=== PATIENT | female | born 1950 | race Caucasian/White ===

== ENCOUNTER 2016-10-26 11:43 | Inpatient (IN) | payer MEDICARE ==
[~2016-10-26] VITALS: Ht 162.6 cm; Wt 106.7 kg
[2016-11-10] MEDS ORDERED: ASPI81TA11 PO (14:29)
[2016-11-10] MEDS ORDERED: TURM1CAP6 PO (14:35)
[2016-11-10] MEDS ORDERED: CINN500C13 PO (14:35)
[2016-11-10] MEDS ORDERED: PANT40TA3 PO (14:35)
[2016-11-10] MEDS ORDERED: BACL10TA PO (14:35)
[2016-11-10] MEDS ORDERED: CURCPOW (14:35)
[2016-11-10] MEDS ORDERED: HYDR25TA5 PO (14:35)
[2016-11-10] MEDS ORDERED: CO Q200C PO (14:35)
[2016-11-10] MEDS ORDERED: GABA800T PO (14:35)
[2016-11-10] MEDS ORDERED: GABA400C5 PO (14:35)
[2016-11-15] MEDS ORDERED: CHLORHEXIDINE GLUCONATE 2 % 1 PACK (2 CLOTHS) TOPICAL PRN (05:30)
[2016-11-15] MEDS ORDERED: METOPROLOL TARTRATE 25 MG TAB PO PRN (05:30)
[2016-11-15] MEDS ORDERED: LACTATED RINGER'S 1000 ML IV PRN (05:30)
[2016-11-15] MEDS ORDERED: SCOPOLAMINE 1.5 MG PATCH T-DERMAL SCH (05:30)
[2016-11-15] MEDS ORDERED: metroNIDAZOLE 500 MG INJ 100 ML IV SCH (05:30)
[2016-11-15] MEDS ORDERED: INSULIN HUMAN REGULAR 1,000 UNITS/10 ML VIAL SQ PRN (05:30)
[2016-11-15] MEDS ORDERED: ACETAMINOPHEN 1000 MG/100 ML VIAL IV SCH (05:30)
[2016-11-15] MEDS ORDERED: APREPITANT 40 MG CAP PO SCH (05:30)
[2016-11-15] MEDS ORDERED: VANCOMYCIN 1,250 MG/NS 250 ML (for 70-84 kg) IV SCH ×2 (05:30)
[2016-11-15] MEDS ORDERED: SODIUM CHLORID 0.9% 500 ML IV PRN (05:30)
[2016-11-15] MEDS ORDERED: ONDANSETRON HCL 4 MG/2 ML VIAL IV PUSH SCH (05:30)
[2016-11-15 05:50] VITALS: BP 133/72; PULSE 73; RESP 16; TEMP 98.1; O2SAT 96
[2016-11-15] MEDS ORDERED: VANCOMYCIN HCL 1000 MG VIAL ONE (06:04)
[2016-11-15] MEDS ORDERED: DICLOFENAC SODIUM 37.5 MG/ML VIAL IV PUSH ONE (06:47)
[2016-11-15] MEDS ORDERED: fentaNYL CITRATE 250 MCG/5 ML AMP ONE (06:47)
[2016-11-15] MEDS ORDERED: DEXAMETHASONE SOD PHOS 4 MG/ML VIAL ONE (06:51)
[2016-11-15] MEDS ORDERED: MIDAZOLAM HCL 2 MG/2 ML VIAL ONE (06:51)
[2016-11-15] MEDS ORDERED: FAMOTIDINE 20 MG/2 ML VIAL ONE (06:51)
[2016-11-15] MEDS ORDERED: BUPIVACAINE/EPINEPHRINE 0.25% 50 ML VIAL INFIL ONE (07:23)
[2016-11-15] MEDS ORDERED: METHYLENE BLUE 100 MG/10 ML VIAL NG ONE (07:43)
[2016-11-15] MEDS ORDERED: ONDANSETRON HCL 4 MG/2 ML VIAL IV PRN (09:00)
[2016-11-15] MEDS ORDERED: NALOXONE HCL 0.4 MG/ML AMP IV PRN (09:00)
[2016-11-15] MEDS ORDERED: MORPHINE SULFATE 30 MG/30 ML PCA IV SCH (09:00)
[2016-11-15] MEDS ORDERED: HYDROmorphone HCL 2 MG TAB PO PRN (09:00)
[2016-11-15] MEDS ORDERED: ENALAPRILAT 1.25 MG/ML VIAL IV PUSH PRN (09:00)
[2016-11-15] MEDS ORDERED: diphenhydrAMINE HCL 50 MG/ML VIAL IV PRN (09:00)
[2016-11-15] MEDS ORDERED: SODIUM CHLORIDE 0.9% FLUSH 10 ML FLUSH IV FLUSH PRN (09:00)
[2016-11-15] MEDS ORDERED: diphenhydrAMINE HCL ELIXIR 12.5 MG/5 ML CUP PO PRN (09:00)
[2016-11-15] MEDS ORDERED: Post-op Orders (for Pharmacy) MISC OTHER ONE (09:03)
--- NOTE | 2016-11-15 09:16 | MP ---
cc: DANIAL GONZLAEZ DATE OF 1950 DATE OF OPERATION 11/15/2016 PREOPERATIVE DIAGNOSES 1. Morbid obesity with BMI of 37, complicated by essential hypertension. 2. Symptomatic cholelithiasis. POSTOPERATIVE DIAGNOSES 1. Morbid obesity with BMI of 37, complicated by essential hypertension. 2. Symptomatic cholelithiasis. PROCEDURE 1. Laparoscopic Hannah-en-Y gastric bypass, 100 cm Hannah limb antegastric, antecolic. 2. Laparoscopic cholecystectomy. SURGEON Danial Gonzalez MD ANESTHESIA sterile technician Dr. Sergio Alvarado ANESTHESIA General endotracheal anesthesia. ESTIMATED BLOOD LOSS Scant. FINDINGS Fatty liver. SPECIMEN Gallbladder. COMPLICATIONS None. OPERATION The patient was brought into the operating room and placed on the operating table in supine position. Bilateral sequential inflation devices were placed on the lower extremities, general anesthesia instituted, Blake catheter placed, antibiotics initiated. The abdomen was prepped and draped sterilely. A point 18 cm distal to the xiphoid in the midline was anesthetized with 0.25% Marcaine with epinephrine. A skin incision was made, a 5-mm Optiview port placed under direct vision and pneumoperitoneum created. Under direct vision, a 5-mm left upper quadrant, a 12-mm left upper quadrant, a 12-mm right upper quadrant and 5-mm right upper quadrant ports were placed. Prior to placement of all ports, the skin and peritoneum were anesthetized with 0.25% Marcaine with epinephrine. The patient patient's omentum was taken off of the abdominal wall using a harmonic. It was split down the middle to create a path for the Hannah limb. The ligament of Treitz was identified, a point 40 cm distal identified, the small bowel divided using an [place] Flex staple with a white load, reinforced with SeamGuard. The distal segment was brought up for a distance of 100 cm, enterotomy created in this region, enterotomy created in the biliopancreatic limb and a [id number] stapled jejunojejunostomy created in the usual manner. The mesenteric defect of the jejunojejunostomy was closed with 2-0 Surgidac suture in a running manner. The patient was placed in reverse Trendelenburg position, left side up. The Cordelia Flex retractor placed and the left lobe of the liver retracted. The angle of His was taken down bluntly, a point 5 cm distal to the GE junction along the lesser curve identified, the lesser sac entered using blunt dissection, the stomach partitioned horizontally using the [place] Flex stapler blue load. Additional firings were taken toward the angle of His to completely divide the stomach. A gastrotomy was created in the kay-stomach, enterotomy in the Hannah limb, a gastrojejunostomy created with a stomal opening of 2 cm. An 18-Beninese OG tube was placed across the anastomosis. The defect was then closed in two layers of running 2-0 Vicryl. Prior to placement of the second layer, methylene blue was instilled through the OG tube. There was no evidence of extravasation. Evicel was then placed over the gastrojejunostomy, jejunojejunostomy and all staple lines, a 10 flat JUANCARLOS placed posterior to the gastrojejunostomy. The operative field was inspected. Hemostasis was present. The patient was then placed right side up in reverse Trendelenburg position. An additional 5-mm port was placed in the epigastrium. The gallbladder was retracted into the upper abdomen, Calot's triangle opened, hepatoduodenal ligament incised. The cystic artery was identified; it was circumferentially dissected. The cystic duct was identified, circumferentially dissected. They were ligated with Hemoclips and divided with the harmonic scalpel. The gallbladder was removed from the liver bed using electrocautery. The liver bed was inspected, hemostasis present. There was no evidence of bile leak or hemorrhage. The [place] Flex retractor was removed. The tubing of the JUANCARLOS was brought out through the 5-mm port site in the right upper quadrant. The pneumoperitoneum was released, all ports removed, all skin incisions closed with 4-0 Monocryl. The abdominal wall was cleaned and a sterile dressing placed. The patient was awakened and taken to recovery room stable. MD DIANNA Zeng/WILSON /9:01 AM /9:10 AM
[2016-11-15] MEDS ORDERED: *morphine SULFATE 8 MG/ML PERIprocedure ONLY ONE ×2 (09:26→09:36)
[2016-11-15] MEDS ORDERED: DO NOT ADM ANY ANTICOAGULANT DRUGS PRN (09:30)
[2016-11-15] MEDS: D5-1/2 NS + KCL 20 MEQ INJ 1,000 ML IV SCH ×3 (09:40→23:29)
[2016-11-15] MEDS: METOCLOPRAMIDE HCL 10 MG/2 ML VIAL IV PUSH SCH ×3 (11:00→23:28)
[2016-11-15] MEDS ORDERED: PROPOFOL 200 MG/20 ML AMP IV ONE (11:16)
[2016-11-15] MEDS ORDERED: ONDANSETRON HCL 4 MG/2 ML VIAL IV PUSH ONE (11:17)
[2016-11-15] MEDS: RESP: ALBUTEROL 2.5 MG/3 ML NEB (SCH) INH ×3 (12:00→23:44)
[2016-11-15] MEDS: ENOXAPARIN SODIUM 40 MG/0.4 ML SYRINGE SQ SCH (13:00)
[2016-11-15] MEDS: metroNIDAZOLE 500 MG INJ 100 ML IV SCH ×2 (13:32→20:07)
[2016-11-15] MEDS: PANTOPRAZOLE SOD 40 MG DELAYED RELEASE TAB PO SCH (14:00)
[2016-11-15 16:00] VITALS: BP 103/54; PULSE 70; RESP 17; TEMP 97.3; O2SAT 97
[2016-11-15 17:06] VITALS: O2SAT 97
[2016-11-15] MEDS: VANCOMYCIN INJ 1,000 MG in SODIUM CHLOR 0.9% 250 ML INJ 250 ML IV SCH (18:00)
[2016-11-15 20:00] VITALS: BP 108/55; PULSE 62; RESP 20; TEMP 98.2; O2SAT 95
[2016-11-15] MEDS: SODIUM CHLORIDE 0.9% FLUSH 10 ML FLUSH IV FLUSH SCH (20:05)
[2016-11-15] MEDS: PCA - TOTAL MG MORPHINE DELIVERED PER SHIFT SCH (20:06)
[2016-11-15 22:25] VITALS: O2SAT 94
[2016-11-16] VITALS (7 sets, daily range): BP systolic 94–125; BP diastolic 53–58; PULSE 55–85; RESP 16–20; TEMP 96.3–97.6; O2SAT 93–100
[2016-11-16] MEDS: D5-1/2 NS + KCL 20 MEQ INJ 1,000 ML IV SCH ×6 (02:00→23:14)
[2016-11-16] MEDS: RESP: ALBUTEROL 2.5 MG/3 ML NEB (SCH) INH ×6 (04:00→23:16)
[2016-11-16] MEDS: METOCLOPRAMIDE HCL 10 MG/2 ML VIAL IV PUSH SCH (04:13)
[2016-11-16] MEDS: VANCOMYCIN INJ 1,000 MG in SODIUM CHLOR 0.9% 250 ML INJ 250 ML IV SCH (04:15)
[2016-11-16] MEDS: metroNIDAZOLE 500 MG INJ 100 ML IV SCH (04:15)
[2016-11-16 05:39] LABS: AUTOMATED NEUTROPHIL # 9.3 TH/MM3 (1.8-7.7); BASOPHIL % 0.2 % (0.0-2.0); HEMO FLAGS DIFF FINAL; LYMPH % 10.9 % (9.0-44.0); LYMPHOCYTE # 1.2 TH/MM3 (1.0-4.8); MEAN CELL VOLUME 90.4 FL (80.0-100.0); MEAN CORPUSCULAR HEMOGLOBIN 29.7 PG (27.0-34.0); MEAN CORPUSCULAR HGB CONC 32.9 % (32.0-36.0); MONO % 6.4 % (0.0-8.0); NEUT % 82.5 % (16.0-70.0); PLATELET COUNT 182 TH/MM3 (150-450); RED CELL DISTRIBUTION WIDTH 13.9 % (11.6-17.2); WHITE BLOOD COUNT 11.3 TH/MM3 (4.0-11.0)
[2016-11-16] MEDS: PCA - TOTAL MG MORPHINE DELIVERED PER SHIFT SCH ×3 (05:40→21:23)
[2016-11-16 06:03] LABS: BICARBONATE 24.3 MEQ/L (21.0-32.0); MAGNESIUM 2.1 MG/DL (1.5-2.5); POTASSIUM 4.5 MEQ/L (3.5-5.1)
[2016-11-16] MEDS: PANTOPRAZOLE SOD 40 MG DELAYED RELEASE TAB PO SCH (08:24)
[2016-11-16] MEDS: SODIUM CHLORIDE 0.9% FLUSH 10 ML FLUSH IV FLUSH SCH ×2 (08:24→21:00)
[2016-11-16] MEDS ORDERED: METOCLOPRAMIDE HCL 10 MG/2 ML VIAL IV PUSH PRN (09:00)
--- NOTE | 2016-11-16 09:10 | HHI.PR ---
Subjective Subjective Notes no acute issues, tolerating liquids, oob, pain controlled Objective Vitals/I&O Vital Signs Date Time Temp Pulse Resp B/P Pulse Ox O2 Delivery O2 Flow Rate FiO2 11/16/16 08:00 96.8 57 16 109/53 98 11/15/16 22:25 21 11/15/16 17:06 Nasal Cannula 2.00 Labs Laboratory Tests Test 11/16/16 03:29 White Blood Count 11.3 Red Blood Count 4.20 Hemoglobin 12.5 Hematocrit 38.0 Mean Corpuscular Volume 90.4 Mean Corpuscular Hemoglobin 29.7 Mean Corpuscular Hemoglobin 32.9 Concent Red Cell Distribution Width 13.9 Platelet Count 182 Mean Platelet Volume 9.2 Neutrophils (%) (Auto) 82.5 Lymphocytes (%) (Auto) 10.9 Monocytes (%) (Auto) 6.4 Eosinophils (%) (Auto) 0.0 Basophils (%) (Auto) 0.2 Neutrophils # (Auto) 9.3 Lymphocytes # (Auto) 1.2 Monocytes # (Auto) 0.7 Eosinophils # (Auto) 0.0 Basophils # (Auto) 0.0 CBC Comment DIFF FINAL Differential Comment Sodium Level 138 Potassium Level 4.5 Chloride Level 108 Carbon Dioxide Level 24.3 Anion Gap 6 Blood Urea Nitrogen 11 Creatinine 0.73 Estimat Glomerular Filtration 80 Rate Random Glucose 118 Calcium Level 8.1 Magnesium Level 2.1 Cardiovascular: Regular Lungs: Clear Abdomen: Other (soft, incisions with steri strips, incisional tenderness) A/P Assessment and Plan POD 1 Lap RYGB doing well PLAN OOB 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
[2016-11-16] MEDS: ENOXAPARIN SODIUM 40 MG/0.4 ML SYRINGE SQ SCH (13:44)
[2016-11-17] VITALS: BP 115/56; PULSE 75; RESP 20; TEMP 98.5; O2SAT 96
[2016-11-17] MEDS: RESP: ALBUTEROL 2.5 MG/3 ML NEB (SCH) INH ×2 (02:59→08:00)
[2016-11-17 04:00] VITALS: BP 117/55; PULSE 71; RESP 20; TEMP 98.5; O2SAT 98
[2016-11-17] MEDS: PCA - TOTAL MG MORPHINE DELIVERED PER SHIFT SCH (05:54)
--- NOTE | 2016-11-17 07:39 | HHI.PR ---
Subjective Subjective Notes feels better, small flatus, pain better Objective Vitals/I&O Vital Signs Date Time Temp Pulse Resp B/P Pulse Ox O2 Delivery O2 Flow Rate FiO2 11/17/16 05:54 18 11/17/16 04:00 98.5 71 117/55 98 11/16/16 15:29 21 11/15/16 17:06 Nasal Cannula 2.00 Cardiovascular: Regular Lungs: Clear Abdomen: Other (soft incisional tenderness, steri strips c/d/i) A/P Assessment and Plan POD 2 Lap RYGB doing well PLAN OOB Pain control po meds encourage liquids dvt ppx d/c planning today Sergio Alvarado MD Nov 17, 2016 07:39
[2016-11-17 08:00] VITALS: BP_SYST 104; BP_SYST 106; BP_DIAS 47; BP_DIAS 58; PULSE 82; RESP 20; TEMP 97.8; O2SAT 96
[2016-11-17] MEDS: PANTOPRAZOLE SOD 40 MG DELAYED RELEASE TAB PO SCH (08:47)
[2016-11-17] MEDS: SODIUM CHLORIDE 0.9% FLUSH 10 ML FLUSH IV FLUSH SCH (08:47)
== END 2016-11-17 09:44 | disposition home or self-care (01) | DRG 620 ==
LOC: HSDI 11-15 05:07 → N07A 11-15 15:26
PROVIDERS: ADMIT Surgery; ATTEND Surgery
PROC: 0D164ZA Bypass Stomach to Jejunum, Percutaneous Endoscopic Approach (ICD-10-PCS; principal; 2016-11-15 06:58)
PROC: 0FT44ZZ Resection of Gallbladder, Percutaneous Endoscopic Approach (ICD-10-PCS; 2016-11-15 06:58)
DX: E66.01 Morbid (severe) obesity due to excess calories (principal); K80.10 Calculus of gallbladder with chronic cholecystitis without obstruction; K76.0 Fatty (change of) liver, not elsewhere classified; Z68.41 Body mass index [BMI] 40.0-44.9, adult; I10 Essential (primary) hypertension; E78.5 Hyperlipidemia, unspecified; G62.9 Polyneuropathy, unspecified; K21.9 Gastro-esophageal reflux disease without esophagitis; Z87.891 Personal history of nicotine dependence; Z88.0 Allergy status to penicillin; Z88.5 Allergy status to narcotic agent
CPT/HCPCS: 80048; 83735; 85025; 88304; 94150; 94640; 94664; J0131; J1100; J1130; J1650; J2250; J2270; J2405; J2765; J3010; J3370; J3480; J7050; J7120; J7613; J8501